=== PATIENT | female | born 1960 | race Caucasian/White ===

== ENCOUNTER → 2018-05-27 08:24 | Outpatient (CLI) | payer OTHER, MEDICAID, SELFPAY ==
[2018-05-27 09:00] LABS: Add Manual Diff / Slide Review NO; Basophils Percent Auto 0.9 % (0-2); Eosinophils Percent Auto 3.7 % (2-4); Hemoglobin 12.7 g/dL (12.0-16.0); Lymphocytes Percent Auto 31.5 % (25-40); Mean Corpuscular HGB Conc 34.2 % (30-36); Mean Corpuscular Hemoglobin 33.2 PG (26-34); Mean Corpuscular Volume 96.9 fL (80-100); Monocytes Percent Auto 8.2 % (3-14); Neutrophils Absolute Auto 2800 /uL (3000-5900); Neutrophils Percent Auto 55.7 % (50-75); Platelet Count 275 X10^3/uL (150-400); Red Blood Cell Count 3.82 X10^6/uL (4.0-5.2); Red Cell Distribution Width 13.5 % (11.6-14.8); White Blood Cell Count 5.1 X10^3/uL (4.5-11.0)
[2018-05-27 09:49] LABS: Alanine Aminotransferase 42 IU/L (9-52); Albumin 4.4 g/dL (3.5-5.0); Albumin Globulin Ratio 1.8 (1.0-2.8); Alkaline Phosphatase 54 U/L (38-126); Aspartate Aminotransferase 50 IU/L (14-36); BUN Creatinine Ratio 21.3 (6-22); Bilirubin Total 0.6 mg/dL (0.2-1.3); Blood Urea Nitrogen 17 mg/dL (7-17); Calcium 9.2 mg/dL (8.4-10.2); Carbon Dioxide 28 mmol/L (22-32); Chloride 99 mmol/L (98-107); Cholesterol 221 mg/dL (140-199); Estimated Glomerular Filt Rate > 60.0 mL/min (>60); Globulin 2.5 g/dL (1.7-4.1); Glucose 91 mg/dL (70-100); HDL Cholesterol 103 mg/dL (40-60); HEMOLYSIS < 15 (0-50); LDL Cholesterol Calculated 106 mg/dL (<100); Potassium 4.5 mmol/L (3.4-5.1); Sodium 138 mmol/L (137-145); Total Protein 6.9 g/dL (6.3-8.2); Triglycerides 61 mg/dL (35-150)
[2018-05-27 10:29] LABS: TSH w/ Reflex to FT4 2.65 uIU/mL (0.47-4.68)
== END ==
PROVIDERS: PCP Internal Medicine; Visit Provider Internal Medicine
DX: D64.9 Anemia, unspecified (principal); Z13.220 Encounter for screening for lipoid disorders; Z78.0 Asymptomatic menopausal state
CPT/HCPCS: 36415; 80053; 80061; 84443; 85025

== ENCOUNTER → 2018-07-24 10:15 | Outpatient (CLI) | payer OTHER, MEDICAID, SELFPAY ==
--- NOTE | 2018-07-24 | DI.MG.S_ITS ---
BILATERAL DIGITAL SCREENING MAMMOGRAM 3D/2D WITH CAD: 07/24/2018 CLINICAL: Routine screening. Comparison is made to exams dated: 07/23/2017 mammogram, 05/22/2016 mammogram, and 05/14/2014 mammogram - [facility]. There are scattered fibroglandular elements in both breasts. Current study was also evaluated with a Computer Aided Detection (CAD) system. There are benign vascular calcifications in both breasts. No significant masses, calcifications, or other findings are seen in either breast. There has been no significant interval change. IMPRESSION: There is no mammographic evidence of malignancy. A 1 year screening mammogram is recommended. This exam was interpreted at Station ID: [id number]. NOTE: For mammograms, a report in lay terms will be sent to the patient. Approximately 15% of breast malignancies will not be visualized mammographically. In the management of a palpable breast mass, a negative mammogram must not discourage biopsy of a clinically suspicious lesion. Electronically Signed By: Polo aguirre/ita:07/24/2018 11:34:03 copy to: Nic Lin letter sent: Normal Exam ACR BI-RADS Category 2: Benign Finding(s) 3342F
== END ==
PROVIDERS: Family Provider Internal Medicine; PCP Internal Medicine; Visit Provider Internal Medicine
DX: Z12.31 Encounter for screening mammogram for malignant neoplasm of breast (principal)
CPT/HCPCS: 77063; 77067

== ENCOUNTER 2019-07-13 11:51 | Day surgery (SDC) | payer OTHER, MEDICAID, SELFPAY ==
[2019-07-13] VITALS (10 sets, daily range): BP systolic 92–121; BP diastolic 55–76; PULSE 59–72; RESP 11–16; TEMP 35.9–37; O2SAT 97–100; BMI 22.3
--- NOTE | 2019-07-13 07:54 | PM.HP.1 ---
History of Present Illness History of Present Illness Date Patient Seen: 07/13/19 Chief complaint: [id number] SCREENING COLONOSCOPY Narrative: 59 year old female comes in today for consideration of a screening colonoscopy. This is her third colonoscopy, records unavailable at time of dictation. Reportedly 1 polyp, unaware of pathology. There have been no lower GI symptoms suggesting disease such as change in bowel habits, bleeding, abdominal pain or anemia. Family history of colon cancer in her father. Overall health issues have been stable, including no major cardiac events for at least 6 weeks. 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 Lives on a boat in [place] with significant other. Medications: Lisinopril 5 mg p.o. q.day Fluoxetine 20 mg, 3 capsules p.o. q.day Bupropion 300 mg p.o. q.day Allergies: No known drug allergies Patient History Medical History (Updated 06/01/18 @ 22:32 by Annalise Larios) Depression (Chronic ~1994) Surgical History (Updated 06/01/18 @ 22:32 by Annalise Larios) Anesthesia (Resolved) History of abdominoplasty (Resolved ~2007) History of surgery (Resolved ~1995) Ovarian cyst (Chronic ~1976) Ruptured lumbar disc (Resolved ~1985) Status post breast augmentation Family & Social History Family History (Updated 02/21/15 @ 00:00 by Conversion Provider) Brother Age: 71 Obese Diabetes mellitus Hypertension Father Cancer Diabetes mellitus Hypertension Grandfather Heart attack Heart disease Mother Cancer Grandfather Heart attack Heart disease Grandmother Diabetes mellitus Tobacco & Substance use: Smoking Status Never smoker Meds Home Medications and Allergies Home Medications Medication Instructions Recorded Confirmed Type bupropion HCl 150 mg tablet,12 hr 300 mg PO QDAY #90 tab 06/02/18 07/13/19 Rx sustained-release fluoxetine 60 mg tablet 60 mg PO QDAY #90 tab 06/02/18 07/13/19 Rx chlorthalidone 25 mg tablet 12.5 mg PO DAILY #45 tab 06/03/18 07/13/19 Rx Allergies Allergy/AdvReac Type Severity Reaction Status Date / Time No Known Drug Allergies Allergy Unverified 06/02/18 14:16 Review of Systems Review of Systems ROS Unobtainable: All systems reviewed & are unremarkable except as noted in HPI and below Exam Narrative Exam Narrative: GENERAL: Alert and oriented, appearing stated age and in no acute distress. HEENT: Head normocephalic/atraumatic. LUNGS: Clear to ausculation bilaterally, no wheezes, rhonchi or rales. CV: Normal S1 and S2 with regular rate and rhythm, no audible murmurs, rubs or gallops. ABDOMEN: Soft, non-tender, non-distended, no organomegaly. Positive bowel sounds. EXTREMITIES: No clubbing, cyanosis, or edema. NEURO: Cranial nerves II through XII grossly intact, no focal deficits. PSYCH: Alert and oriented x 3. SKIN: No concerning lesions. Assessment & Plan Assessment & Plan narrative: 1. Family history of colon cancer 2. Screening for colon cancer 3. Possible history of colon polyps Plan for colonoscopy. The nature and character of the procedure as well as anticipated results were discussed. The possibility of not completing the procedure was also discussed. Possible complications including aspiration pneumonia, bleeding, perforation and reaction to medications either for sedation or preparation and missed lesions were discussed. Questions were answered and proceeding to the colonoscopy was elected. Informed consent signed. I sincerely appreciate the referral allowing me to participate in this patient's care. Please contact me with any questions or concerns.
--- NOTE | 2019-07-13 08:00 | PM.OP.ENDO ---
Operative Date/Time/Diagnoses Date of procedure: 07/13/19 Time of procedure: 13:10 Pre-op diagnosis: 1. Family history of colon cancer 2. Screening for colon cancer 3. Possible history of colon polyps Post-op diagnosis: other (1. Normal colonoscopy) Procedure & Clinicians Study performed: Colonoscopy Same procedure as scheduled: Yes Indications: 1. Family history of colon cancer 2. Screening for colon cancer 3. Possible history of colon polyps Surgeon: Mehnaz Metzger Procedure Notes SCOAP/Timeout: 13:09 Procedure in detail: ENDOSCOPIST: Mehnaz Metzger MD Sedation RN: Rosalinda Govea RN Sedation start time: 13:10 Sedation end time: 13:44 PROCEDURE: Colonoscopy INDICATIONS: 1. Family history of colon cancer 2. Screening for colon cancer 3. Possible history of colon polyps MEDICATION: Levsin 0.125 mg sublingual, incremental doses of Versed and fentanyl until appropriate level sedation achieved. ASA CLASS: 2 CECAL WITHDRAWAL TIME: 8 minutes COMPLICATIONS: None. EXTENT OF PROCEDURE: Cecum. QUALITY OF PREP: Good with portions of liquid stool. PROCEDURE: Prior to insertion of the colonoscope, a digital rectal examination was accomplished with circumferential palpation of the distal rectal mucosa without significant findings being noted. The high-definition pediatric colonoscope was passed into the rectum in the usual fashion and advanced over to the cecum without difficulty. The ileocecal valve, appendiceal stoma, and medial wall all could be inspected and no abnormalities were seen. ASCENDING COLON: As the colonoscope was withdrawn, care was taken to expose and inspect the haustral folds and no abnormalities were seen. HEPATIC FLEXURE: Normal no polyps, diverticula or other abnormalities. TRANSVERSE COLON: Normal no polyps, diverticula or other abnormalities. DESCENDING COLON: Normal no polyps, diverticula or other abnormalities. SIGMOID COLON: Normal no polyps, diverticula or other abnormalities. RECTUM: Normal. J maneuver was produced. There was no significant perianal disease. The J maneuver was broken. The remainder of the rectum was inspected and there was no external hemorrhoid disease. The scope was withdrawn. IMPRESSION: 1. Normal colonoscopy PLAN: 1. Repeat colonoscopy in 5 years secondary to family history of colon cancer. The possibility of a missed lesion including a malignancy has been discussed with the patient previously. Potential alarm symptoms have been discussed and should be reported immediately. Scope withdrawal time: 8 minutes Sedation minutes: 34 Specimen(s): none sent Complications: none Impression: Normal colonoscopy Post-procedure Recommendations: Colonscopy in 5 years Follow up: as needed Disposition: PACU
[2019-07-13] MEDS: SODIUM CHLORIDE 0.9% 1,000 ML 200 ML IV (12:17)
[2019-07-13] MEDS: HYOSCYAMINE 0.125 MG TABLET PO (12:18)
[2019-07-13] MEDS: MIDAZOLAM 5 MG/5 ML VIAL IV (13:08)
[2019-07-13] MEDS: fentaNYL 250 MCG/5 ML INJ IV (13:08)
--- NOTE | 2019-07-13 14:02 | SUR.PHASEI ---
Patient sitting up, taking ice chips without difficulty. Denies any pain at this time. No nausea. VSS.
--- NOTE | 2019-07-13 14:36 | SUR.PHASEI ---
Unable to transfer patient to Phase II at this time due to patient census in phase II.
== END 2019-07-13 15:30 | disposition home or self-care (01) ==
PROVIDERS: Family Provider Internal Medicine; PCP Internal Medicine; Visit Provider Student in an Organized Health Care Education/Training Program
PROC: 0DJD8ZZ Inspection of Lower Intestinal Tract, Via Natural or Artificial Opening Endoscopic (ICD-10-PCS; CPT 45378; principal; 2019-07-13 13:00)
DX: Z12.11 Encounter for screening for malignant neoplasm of colon (principal); Z80.0 Family history of malignant neoplasm of digestive organs
CPT/HCPCS: 45378; J2250; J3010

== ENCOUNTER → 2020-03-01 10:57 | Outpatient (CLI) | payer OTHER, MEDICAID, SELFPAY ==
--- NOTE | 2020-03-01 | DI.RAD.S_ITS ---
PROCEDURE: XR FOOT RT MIN 3V INDICATIONS: RIGHT FOOT PAIN TECHNIQUE: 3 views of the foot were acquired. COMPARISON: [facility], , FOOT 3V RIGHT, 03/23/2012, 20:28. FINDINGS: Bones: Intra-articular, impacted fracture of the proximal phalanx of the 4th toe. Mild 1st MTP joint degeneration. Soft tissues: No tibiotalar joint effusion. Achilles tendon appears normal. IMPRESSION: Intra-articular fracture involving the proximal phalanx of the 4th toe. Dictated by: Sylvain Wallis M.D. on 03/01/2020 at 13:17 Approved by: Sylvain Wallis M.D. on 03/01/2020 at 13:19
== END ==
PROVIDERS: Family Provider Internal Medicine; PCP Internal Medicine; Referring Provider Internal Medicine; Visit Provider Internal Medicine
DX: S92.511A Displaced fracture of proximal phalanx of right lesser toe(s), initial encounter for closed fracture (principal); M25.571 Pain in right ankle and joints of right foot; M19.071 Primary osteoarthritis, right ankle and foot; X58.XXXA Exposure to other specified factors, initial encounter
CPT/HCPCS: 73630

== ENCOUNTER → 2020-03-24 10:52 | Outpatient (CLI) | payer OTHER, MEDICAID, SELFPAY ==
--- NOTE | 2020-03-24 11:04 | DI.MG.S_ITS ---
Patient Name: JONO KENDRICK date: 1960 Sex: F Attending Physician: Stephanie Indications: Date: 03/24/2020 10:58 At the request of: EVELYNE GOLD Procedure: MM screening mammo BI BILATERAL DIGITAL SCREENING MAMMOGRAM 3D/2D WITH CAD: 03/24/2020 CLINICAL: Routine screening. Comparison is made to exams dated: 07/24/2018 mammogram, 07/23/2017 mammogram, and 05/22/2016 mammogram - [facility]. There are scattered fibroglandular elements in both breasts. Current study was also evaluated with a Computer Aided Detection (CAD) system. There are benign vascular calcifications in both breasts. No significant masses, calcifications, or other findings are seen in either breast. There has been no significant interval change. IMPRESSION: BENIGN There is no mammographic evidence of malignancy. A 1 year screening mammogram is recommended. This exam was interpreted at Station ID: [id number]. NOTE: For mammograms, a report in lay terms will be sent to the patient. Approximately 15% of breast malignancies will not be visualized mammographically. In the management of a palpable breast mass, a negative mammogram must not discourage biopsy of a clinically suspicious lesion. Electronically Signed By: Polo aguirre/ita:03/24/2020 12:10:36 copy to: Nic Lin letter sent: Normal Exam ACR BI-RADS Category 2: Benign Finding(s) 3342F
== END ==
PROVIDERS: Family Provider Internal Medicine; PCP Internal Medicine; Referring Provider Internal Medicine; Visit Provider Internal Medicine
DX: Z12.31 Encounter for screening mammogram for malignant neoplasm of breast (principal)
CPT/HCPCS: 77063; 77067

== ENCOUNTER → 2020-05-04 10:12 | Outpatient (CLI) | payer OTHER, MEDICAID, SELFPAY | PROVIDERS: Family Provider Internal Medicine; PCP Internal Medicine; Referring Provider Internal Medicine; Visit Provider Internal Medicine | DX: Z78.0 Asymptomatic menopausal state (principal); Z87.81 Personal history of (healed) traumatic fracture | CPT/HCPCS: 77080 ==

== ENCOUNTER → 2021-05-05 17:53 | Outpatient (CLI) | payer OTHER, MEDICAID, SELFPAY ==
--- NOTE | 2021-05-05 | DI.MG.S_ITS ---
BILATERAL DIGITAL SCREENING MAMMOGRAM 3D/2D WITH CAD: 05/05/2021 CLINICAL: Routine screening. Comparison is made to exams dated: 03/24/2020 mammogram, 07/24/2018 mammogram, and 07/23/2017 mammogram - [facility]. There are scattered fibroglandular elements in both breasts. Current study was also evaluated with a Computer Aided Detection (CAD) system. There are benign vascular calcifications in both breasts. No significant masses, calcifications, or other findings are seen in either breast. There has been no significant interval change. IMPRESSION: BENIGN There is no mammographic evidence of malignancy. A 1 year screening mammogram is recommended. This exam was interpreted at Station ID: [id number]. NOTE: For mammograms, a report in lay terms will be sent to the patient. Approximately 15% of breast malignancies will not be visualized mammographically. In the management of a palpable breast mass, a negative mammogram must not discourage biopsy of a clinically suspicious lesion. Electronically Signed By: Caleb hickman/ita:05/06/2021 12:01:54 copy to: Nic Lin letter sent: Normal Exam ACR BI-RADS Category 2: Benign Finding(s) 3342F
== END ==
PROVIDERS: Family Provider Internal Medicine; PCP Internal Medicine; Referring Provider Internal Medicine; Visit Provider Internal Medicine
DX: Z12.31 Encounter for screening mammogram for malignant neoplasm of breast (principal)
CPT/HCPCS: 77063; 77067

== ENCOUNTER → 2023-03-19 11:36 | Outpatient (CLI) | payer OTHER, MEDICAID, SELFPAY ==
--- NOTE | 2023-03-19 | DI.RAD.S_ITS ---
PROCEDURE: XR CERVICAL SPINE 2V OR 3V INDICATIONS: neck pain TECHNIQUE: 3 view(s) of the cervical spine were acquired. COMPARISON: None. FINDINGS: Bones: Trace anterolisthesis of C3 on C4 and C4 on C5. There is slight reversal of the normal cervical lordosis. No acute traumatic subluxation or vertebral body height loss identified. C1 on C2 alignment is within normal limits. Moderate degenerative changes. Soft tissues: No prevertebral soft tissue swelling. IMPRESSION: Moderate degenerative changes, particularly in the lower cervical spine. Multilevel slight spondylolisthesis. No acute traumatic subluxation or vertebral body height loss identified. If there is high concern for further derangement, consider MRI evaluation. Dictated by: Silvio Garrido M.D. on 03/19/2023 at 14:24 Approved by: Silvio Garrido M.D. on 03/19/2023 at 14:25
== END ==
PROVIDERS: Family Provider Internal Medicine; PCP Internal Medicine; Referring Provider Internal Medicine; Visit Provider Internal Medicine
DX: M47.812 Spondylosis without myelopathy or radiculopathy, cervical region (principal); M54.2 Cervicalgia
CPT/HCPCS: 72040

== ENCOUNTER → 2023-08-09 16:44 | Outpatient (CLI) | payer OTHER, MEDICAID, SELFPAY ==
--- NOTE | 2023-08-09 16:50 | DI.MG.S_ITS ---
BILATERAL DIGITAL SCREENING MAMMOGRAM 3D/2D WITH CAD: 08/09/2023 CLINICAL: Routine screening. Comparison is made to exams dated: 05/05/2021 mammogram, 03/24/2020 mammogram, and 07/24/2018 mammogram - [facility]. There are scattered areas of fibroglandular density in both breasts (category b / 25%-50% glandular tissue). Current study was also evaluated with a Computer Aided Detection (CAD) system. There are benign vascular calcifications in both breasts. No significant masses, calcifications, or other findings are seen in either breast. There has been no significant interval change. IMPRESSION: BENIGN There is no mammographic evidence of malignancy. A 1 year screening mammogram is recommended. Based on the Tyrer Cuzick model (a risk assessment model) the patient's lifetime risk is 4.6% and her 10 year risk is 2.1%. According to the ACR, ACS, and NCCN guidelines, an annual breast MRI exam along with mammogram is recommended if the patient's lifetime risk is 20% or greater. This exam was interpreted at Station ID: [id number]. NOTE: For mammograms, a report in lay terms will be sent to the patient. Approximately 15% of breast malignancies will not be visualized mammographically. In the management of a palpable breast mass, a negative mammogram must not discourage biopsy of a clinically suspicious lesion. Electronically Signed By: Silvio rodriguez/ita:08/12/2023 08:56:24 copy to: Nic Lin letter sent: Normal Exam ACR BI-RADS Category 2: Benign Finding(s) 3342F
== END ==
PROVIDERS: Family Provider Internal Medicine; PCP Internal Medicine; Referring Provider Internal Medicine; Visit Provider Internal Medicine
DX: Z12.31 Encounter for screening mammogram for malignant neoplasm of breast (principal); R92.323 Mammographic fibroglandular density, bilateral breasts
CPT/HCPCS: 77063; 77067

== ENCOUNTER 2024-07-16 07:33 | Day surgery (SDC) | payer MEDICARE, MEDICAID, SELFPAY ==
[2024-07-16 08:00] VITALS: BP 137/90; PULSE 66; RESP 18; TEMP 36.4; O2SAT 99
--- NOTE | 2024-07-16 08:38 | PM.HP.1 ---
History of Present Illness History of Present Illness Date Patient Seen: 07/16/24 Time Patient Seen: 08:38 Chief complaint: Dx Colonoscopy w/poss bx Narrative: Ailyn is a 64-year-old woman who presents for a colonoscopy. Father had colon cancer in his 70s. Her last was in [address] Metzger and was normal. [facility] Medical History (Updated 07/16/24 @ 08:39 by Gabino Olmos MD) Depression (~1994) Surgical History (Updated 06/01/18 @ 22:32 by Annalise Larios) Anesthesia Ruptured lumbar disc (~1985) History of surgery (~1995) History of abdominoplasty (~2007) Ovarian cyst (~1976) Status post breast augmentation Family History (Updated 02/21/15 @ 00:00 by Conversion Provider) Brother Age: 76 Obese Diabetes mellitus Hypertension Father Cancer Diabetes mellitus Hypertension Grandfather Heart attack Heart disease Mother Cancer Grandfather Heart attack Heart disease Grandmother Diabetes mellitus Social History household members: significant other Smoking Status: Former smoker alcohol intake: current Meds Home Medications and Allergies Home Medications Medication Instructions Recorded Confirmed Type bupropion HCl 150 mg tablet,12 hr 300 mg (2 x 150 mg) PO QDAY #90 06/02/18 07/13/19 Rx sustained-release (Wellbutrin SR) tabs fluoxetine 60 mg tablet 60 mg PO QDAY #90 tabs 06/02/18 07/13/19 Rx chlorthalidone 25 mg tablet 12.5 mg (1/2 x 25 mg) PO DAILY #45 06/03/18 07/13/19 Rx tabs Allergies Allergy/AdvReac Type Severity Reaction Status Date / Time No Known Drug Allergies Allergy Verified 07/16/24 07:54 Exam Vital Signs (past 8 hours): - 07/16/24 08:00 Temperature 97.6 F Pulse Rate 66 Respiratory Rate 18 Blood Pressure 137/90 Pulse Oximetry 99 Oxygen Delivery Method Room Air Oxygen Delivery Method Room Air Const General: No acute distress Assessment & Plan Assessment and plan (1) Colon cancer screening: Status: Acute Plan Colonoscopy Time-Based Coding :: [TOTAL MINUTES] spent with patient and on the chart (including review of chart, obtaining history, exam, reviewing outside data, placing orders, documenting exam and treatment plan, and counseling patient) on [DATE].
[2024-07-16 09:15] VITALS: BP 113/87; PULSE 83; RESP 15; TEMP 36.4; O2SAT 99
--- NOTE | 2024-07-16 09:16 | PM.OP.COLON ---
Operative Date/Time/Diagnoses Date of procedure: 07/16/24 Time of procedure: 09:16 Pre-op diagnosis: Colon cancer screening Post-op diagnosis: same Procedure & Clinicians Study performed: Colonoscopy Same procedure as scheduled: Yes Surgeon: Gabino Olmos Procedure Notes Procedure in detail: Surgeon: Gabino Olmos MD Anesthesia: Karen Levi CRNA Procedure: The patient was brought to the endoscopy suite, placed in left lateral decubitus position. The patient was connected to monitoring devices. A time-out was performed. Sedation was administered. Once the patient was adequately sedated, a digital rectal exam was performed and was normal. The scope was then inserted and advanced to the cecum where the appendiceal orifice was identified and photographed. The scope was then slowly withdrawn over greater than 6 minutes. The mucosa was thoroughly inspected. No abnormalities were identified. The scope was retroflexed in the rectum. The scope was straightened and removed. The patient was awakened and brought to recovery. Scope withdrawal time: 8 minutes Sedation time: 16 minutes EBL: 0 Findings: Normal colon Post-procedure Recommendations: Colonoscopy in 10 years Disposition: PACU
[2024-07-16 09:20] VITALS: BP 125/87; PULSE 87; RESP 15; TEMP 36.4; O2SAT 98
[2024-07-16 09:26] VITALS: BP 130/86; PULSE 86; RESP 15; O2SAT 99
== END 2024-07-16 09:36 | disposition home or self-care (01) ==
PROVIDERS: Family Provider Internal Medicine; PCP Internal Medicine; Referring Provider Surgery; Visit Provider Surgery
PROC: 0DJD8ZZ Inspection of Lower Intestinal Tract, Via Natural or Artificial Opening Endoscopic (ICD-10-PCS; CPT 45378; principal; 2024-07-16 08:45)
DX: Z12.11 Encounter for screening for malignant neoplasm of colon (principal); Z80.0 Family history of malignant neoplasm of digestive organs
CPT/HCPCS: G0105; J2405; J2704

== ENCOUNTER → 2025-07-02 14:17 | Outpatient (CLI) | payer MEDICARE, MEDICAID, SELFPAY ==
--- NOTE | 2025-07-02 14:21 | DI.MG.S_ITS ---
MM screening mammo BI: 07/02/2025. BI-RADS: 1 CLINICAL: 65-year old female for bilateral screening mammogram. Tyrer-Cuzick lifetime risk of 2.5%. No personal or first-degree family history of breast cancer. PRIOR EXAMS 08/09/2023, 05/05/2021, 03/24/2020, 07/24/2018. MAMMOGRAPHY TECHNIQUE: 2D and 3D (tomosynthesis) digital mammographic views obtained, with additional images as needed for full coverage. Current study was also evaluated with a Computer Aided Detection (CAD) system. DENSITY B. There are scattered areas of fibroglandular density. MAMMOGRAPHY FINDINGS Bilateral: No suspicious mass, asymmetry, microcalcification, or other abnormality seen. IMPRESSION: * No evidence of malignancy. RECOMMENDATIONS Bilateral * Annual screening mammography. OVERALL ASSESSMENT CATEGORY BI-RADS-1: Negative. The [employer] recommends annual screening mammography beginning at age 40 for women with average risk of breast cancer. ELECTRONICALLY SIGNED: Caleb Berry M.D. on 07/04/2025 at 07:40:12 PM PT Interpreting Station ID: [id number]
== END ==
LOC: MAMMO 14:20
PROVIDERS: Family Provider Internal Medicine; PCP Family Medicine; Referring Provider Family Medicine; Visit Provider Family Medicine
DX: Z12.31 Encounter for screening mammogram for malignant neoplasm of breast (principal)
CPT/HCPCS: 77063; 77067